=== PATIENT | female | born 1995 | race Caucasian/White ===

== ENCOUNTER 2022-09-30 17:48 | Emergency (ER) | payer SELFPAY ==
[~2022-09-30] VITALS: Ht 152.4 cm; Wt 39.0 kg
[2022-09-30] MEDS ORDERED: ACETAMINOPHEN ES 500 MG TABLET PO ONE (18:00)
[2022-09-30] MEDS ORDERED: ACETAMINOPHEN ES 500 MG TABLET ONE (18:25)
--- NOTE | 2022-09-30 19:06 | NUR ---
@ [id number] from store "slipped on paper - fell backward and hit head and Right hip"
--- NOTE | 2022-09-30 20:37 | NUR ---
Patient discharged to home in stable condition. Written and verbal after care instructions given. Patient verbalizes understanding of instruction. pt ambulatory with a steady gait
[2022-09-30 20:38] VITALS: BP 109/81
== END 2022-09-30 20:41 | disposition home or self-care (01) ==
LOC: ER 18:08
DX: R51.9 Headache, unspecified (principal); M54.2 Cervicalgia; M25.551 Pain in right hip
CPT/HCPCS: 99284; 72125; 73552; 73502; 70450; L0172